=== PATIENT | male | born 1940 | race Caucasian/White ===

== ENCOUNTER → 2018-01-31 | Outpatient (CLI) | payer MEDICARE, OTHER ==
--- NOTE | 2018-01-31 12:37 | Diagnostic Imaging Report ---
Exam: Testicular ultrasound. Clinical History: Spermatocele of epidiymis. Comparison: Testicular ultrasound 12/31/2014. Findings: Grayscale and color flow doppler ultrasound including spectral waveform analysis was performed. Right testicle: Measures 4.0 x 1.9 x 3.6 cm. Normal blood flow and appearance. No masses. Small hydrocele. Epididymis measures 0.9 x 0.7 x 0.7 cm with an unchanged anechoic cyst measuring 4 mm. No evidence of varicocele. Left testicle: Measures 4.0 x 2.5 x 2.6 cm. Normal blood flow and appearance. No masses. Small hydrocele. Epididymis measures 0.8 x 0.9 x 0.5 cm. No evidence of varicocele. Impression: Unchanged testicular ultrasound with 4 mm right epididymal cyst and small bilateral hydroceles. No sonographic evidence of testicular torsion. Signed by: Dr. Ramirez Khan MD on 01/31/2018 12:34 PM
== END ==
LOC: US 10:58
PROVIDERS: ATTEND Urology
DX: N43.40 Spermatocele of epididymis, unspecified (principal)
CPT/HCPCS: 76870; 93976